=== PATIENT | male | born 1940 | race Caucasian/White ===

== ENCOUNTER 2020-05-26 10:32 | Day surgery (SDC) | payer OTHER, BC ==
[2020-05-21 12:59] LABS: Absolute Lymphocytes (CBC) 1.2 K/uL (0.7-4.9); Hematocrit 40.6 % (39.6-49.0); Lymphocytes % 12.2 % (15.3-44.8); RBC Red Blood Cell Count 4.73 M/uL (4.33-5.43)
[2020-05-21 13:00] LABS: Protime INR 1.03
[2020-05-21 13:31] LABS: Potassium 4.6 mmol/L (3.5-5.1)
--- NOTE | 2020-05-21 14:23 | RAD REPORT ---
EXAM DESCRIPTION: RAD - Chest Pa And Lat (2 Views) - 05/21/2020 1:43 pm CLINICAL HISTORY: PREOP SAME DAY SURGERY Chest pain. COMPARISON: No comparisons FINDINGS: The lungs are mildly emphysematous. The heart is normal in size. Left chest wall chronic p osttraumatic changes are seen.
[~2020-05-26 10:32] MED LIST: GEMCITABINE HCL 1,000 MG in NA CHLORIDE 0.9% 26.3 ML IVPB ONE
[2020-05-26] MEDS ORDERED: NA CHLORIDE 0.9% 1,000 ML ONE (11:18)
[2020-05-26] MEDS ORDERED: ONDANSETRON 4 MG/2 ML VIAL ONE (14:31)
[2020-05-26] MEDS ORDERED: propofoL 200 MG/20 ML VIAL IV ONE (14:31)
[2020-05-26] MEDS ORDERED: FENTANYL CITR 100 MCG/2 ML ONE (14:31)
[2020-05-26] MEDS ORDERED: LIDOCAINE 1% MPF 5 ML VIAL ONE (14:31)
[2020-05-26] MEDS: GENTAMICIN 80 MG/100 ML BAG 80 MG/100 ML BAG IV ONE ×2 (14:48→14:56)
[2020-05-26] MEDS ORDERED: EPHEDRINE SULF 50 MG/ML VIAL ONE (15:25)
[2020-05-26] MEDS ORDERED: GLYCOPYRROLATE 0.2 MG/ML SYR ONE (15:44)
[2020-05-26] MEDS ORDERED: OPIUM/BELLADONNA SUPPOS (30-16.2 MG) PR ONE (16:14)
[2020-05-26] MEDS ORDERED: D50W 50 ML IV ONE (16:21)
[2020-05-26] MEDS ORDERED: HYDROCODONE/APAP 5/325 MG TAB PO PRN (17:20)
[2020-05-26] MEDS ORDERED: PHENAZOPYRIDINE 100MG TAB PO ONE (17:20)
[2020-05-26 17:37] VITALS: BP 125/48; TEMP 96.8; O2SAT 95
--- NOTE | 2020-05-26 18:08 | OP ---
Surgeon: KENNEDI VIGIL Preoperative Diagnosis: Bladder tumor, associated diagnosis urinary retention. Postoperative Diagnosis: Bladder tumor, associated diagnosis urinary retention. Tumor size greater than 2, but less than 5 cm. Principle Procedures: 1.Cystoscopy and right temporary ureteral stent placement and extraction. 2.Transurethral resection of a bladder tumor greater than 2, but less than 5 cm. 3.Instillation of intravesical gemcitabine chemotherapy. Indication For Procedure: Mr. Aleman presented to the Urology Clinic with urinary retention and a Beavers catheter placed. He had failed an attempt at a voiding trial despite alpha-vivi therapy and underwent a cystoscopy to evaluate prior to consideration for possible surgical therapy. At the carolina e of the cystoscopy, incidentally observed was a right lateral wall bladder tumor. He thus presents today for definitive management of that tumor and was consented accordingly. Procedure In Detail: The patient was consented in the preoperative holding area before being transfe rred to the operative suite where general anesthesia was induced. He was given gentamicin 80 mg IV a ntimicrobial prophylaxis to accompany the Levaquin 500 mg oral antimicrobial prophylaxis, which he bain d started yesterday and taken today prior to arrival. Pneumo boots were provided for DVT prophylaxis . He was placed in the lithotomy position, padded and secured to the table appropriately. His genit karin were prepped using Hibiclens, and he was draped in standard fashion. The case was begun using a 22-Grenadian rigid cystoscope to traverse the urethra and into the bladder. The bladder was surveyed, and given the proximity of the tumor to the ureteral orifice opening, I elected to place a 5-Grenadian u reteral access catheter to delineate the ureteral orifice and avoid its inadvertent resection and adan nosis. Leaving the 5-Grenadian ureteral access catheter in place within the right collecting system, em anating from the ureteral orifice and out the urethra, I then replaced the resectoscope alongside it using the 26-Grenadian Olympus bipolar resectoscope set. The bladder was then entered, and using the bi polar loop, I quickly resected the tumor that was just over 2 cm in diameter down to the base. Caref ul resection of the base was then undertaken in order to achieve a sampling of the muscularis propria . The entirety of the specimen was then evacuated from the bladder and sent for pathologic analysis. A careful search for bleeding was undertaken, and any bleeding vessels were carefully fulgurated. The ureteral orifice itself was very near to the affected area of mucosa, but was only fulgurated jose elias ng the anterior 1/2 of its surface. Thus, with the tumor completely resected and no bleeding, I surv eyed the rest of the bladder, and there were no other concerning mucosal lesions, foreign bodies or s tones. There was evidence of mild cystitis from his chronic catheterization. I thus removed the cys toscope and replaced a 20-Grenadian urethral Beavers catheter into his bladder with 10 cc of sterile water in the balloon. I then decompressed his bladder completely and then instilled 2 g of gemcitabine in 50 cc of normal saline with ease. The gemcitabine was clamped within the bladder with a leg bag att ached for ease of evacuation. The patient was taken out of the lithotomy position, transferred to a stretcher, and absorbent chucks were placed around his genitalia in the event of leakage of the intra vesical chemotherapy, and he was transferred to the recovery room in good condition. Complications: None. Discharge Disposition: He would keep the intravesical chemotherapy for 1-2 hours and rotate by a luana rter turn once he is awake sufficiently in order to cope the entirety of his bladder and prevent reim plantation of the tumor. The gemcitabine will then be drained from his bladder and the leg bag assoc iated will be discarded. He will then be given a new leg bag and discharged home with the catheter t o gravity. Subsequent followup will be determined in the Urology Clinic in approximately 2 weeks' ti me where we will discuss the pathology and any next steps in management of both his bladder cancer as well as his urinary retention. He will continue the Levaquin therapy started preoperatively for the remainder of a 7-day course of treatment. ALEXANDRIA/CLEMENTINAL Voice ID: [id number] Report ID: [id number]
--- OUTSIDE RECORDS SUMMARY | 2020-05-27 06:26 | XMS REPORT ---
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 550546995493088 prostate Problem Urinary R33.9 Active 015929134 retention ALLERGIES No Known Allergies ENCOUNTERS from 1940 to 2020-05-05 Encounter Location Date Provider Diagnosis [facility] [address] [facility] [address] Apr, Natanael Granger Specialty[facility] [address] IMMUNIZATIONS No Information SOCIAL HISTORY Sex Assigned At : Social History Observation Description Sex Assigned At Unknown REASON FOR REFERRAL No Information VITAL SIGNS No information MEDICATIONS Medication SIG (Take, Route, Notes Start Date End Date Status Frequency, Duration) Aspirin 81 81 MG 1 tablet Orally Once Active a day Niacin 500 MG 1 tablet with food Act jn Orally Once a day Farxiga 10mg 1 By Mouth Daily Active Flomax 0.4 MG 1 capsule Orally Once Apr,Nov, Active a day for 30 day(s) Pioglitazone HCl 15 MG 1 tablet Orally Once Active a day Amlodipine Besylate 10 MG 1 tablet Orally Once Active a day Hydrochlorothiazide 25 MG 1 tablet in the Active morning Orally Once a day Atenolol 100 MG 1 tablet Orally Once Active a day Benazepril HCl 40 MG 1 tablet Orally Once Active a day PROCEDURES No Information RESULTS No Results REASON FOR VISIT No Information MEDICAL (GENERAL) HISTORY Type Description Date Medical History COPD Medical History DIABETES Goals Section No Information Health Concerns No Information MEDICAL EQUIPMENT No Information MENTAL STATUS No Information FUNCTIONAL STATUS No Information ASSESSMENTS No Information PLAN OF TREATMENT Medication Medication Name Sig Start Date Stop Date Flomax 0.4 MG 1 capsule Orally Once a day for 30 day(s) Apr 9 Nov, 2020 Next Appt Details Provider Name:Natanael Granger, 10:30:00 AM, [address] [place] [address], [place], [address], Insurance Providers Payer Name Payer Address Payer Insured Patient Coverage Cover age Phone Name Relationship to Start Date End Date Insured MEDICARE Attn Part B [id number] Adilson HUERTA self [place] Claims [address] [facility] [address] [facility] [address] [phone] Adilson HUERTA self and Blue [facility] [address] [facility] [address]
--- OUTSIDE RECORDS SUMMARY | 2020-05-27 06:26 | XMS REPORT ---
:1940 Author Organization [facility] Address [address] [facility], 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 200 May, Natanael Granger Specialty/Urology [place] [address] IMMUNIZATIONS No Information SOCIAL HISTORY Sex Assigned At : Social History Observation Description Sex Assigned At Unknown REASON FOR REFERRAL No Information VITAL SIGNS No information MEDICATIONS Medication SIG (Take, Route, Notes Start Date End Date Status Frequency, Duration) Pioglitazone HCl 15 MG 1 tablet Orally Once Active a day Atenolol 100 MG 1 tablet Orally Once Active a day Aspirin 81 81 MG 1 tablet Orally Once Active a day Hydrochlorothiazide 25 MG 1 tablet in the Active morning Orally Once a day Amlodipine Besylate 10 MG 1 tablet Orally Once Active a day Flomax 0.4 MG 1 capsule Orally Once Apr,Nov, Active a day for 30 day(s) Benazepril HCl 40 MG 1 tablet Orally Once Active a day Niacin 500 MG 1 tablet with food Act jn Orally Once a day Farxiga 10mg 1 By Mouth Daily Active PROCEDURES No Information RESULTS No Results REASON FOR VISIT No Information MEDICAL (GENERAL) HISTORY Type Description Date Medical History COPD Medical History DIABETES Goals Section No Information Health Concerns No Information MEDICAL EQUIPMENT No Information MENTAL STATUS No Information FUNCTIONAL STATUS No Information ASSESSMENTS No Information PLAN OF TREATMENT Next Appt Details Provider Name:Natanael Granger, 12:00:00 AM, [address] [place] [address], [facility] [address], [place], [address], Insurance Providers Payer Name Payer Address Payer Insured Patient Coverage Cover age Phone Name Relationship to Start Date End Date Insured MEDICARE Attn Part B [id number] Adilson HUERTA [place] Claims [address] [facility] [address] [facility] [address] [phone] Adil[address] HU[address]A [address] [facility] [address] [facility] [address]
--- OUTSIDE RECORDS SUMMARY | 2020-05-27 06:26 | XMS REPORT ---
:1940 Author Organization [facility] Address [address] [facility], 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 confirmed 971304961275 1 prostate 09 Problem Bladder D49.4 Active confirmed 360765231 tumor Problem Urinary R33.9 Active confirmed 293166418 retention ALLERGIES No Known Allergies ENCOUNTERS from 1940 to 2020-05-22 Encounter Location Date Provider Diagnosis [facility] [address] [facility] 200 May, Natanael Granger Specialty[facility] [address] IMMUNIZATIONS No Information SOCIAL HISTORY Sex Assigned [...] Information RESULTS No Results REASON FOR VISIT RX MEDICAL (GENERAL) HISTORY Type Description Date Medical History COPD Medical History DIABETES Goals Section No Information Health Concerns No Information MEDICAL EQUIPMENT No Information MENTAL STATUS No Information FUNCTIONAL STATUS No Information ASSESSMENTS No Information PLAN OF TREATMENT Next Appt Details Provider Name:Natanael Granger, 12:00:00 AM, [address] [place] [address], [facility] [address], [place], [address], Insurance Providers Payer Name Payer Address Payer Insured Patient Coverage Cover age Phone Name Relationship to Start Date End Date Insured MEDICARE Attn Part B [id number] Adilson HUERTA N[place] Claims [address] [facility] [address] [facility] [address] [phone] Adilson HUERTA and [facility] [address] [facility] [address]
--- OUTSIDE RECORDS SUMMARY | 2020-05-27 06:26 | XMS REPORT | Continuity of Care Document ---
:1940 Author Organization [facility] t Address [facility] [place] [address] Care Team Providers Name Role Phone Unavailable Unavailable Unavailable Problems This patient has no known problems. Allergies, Adverse Reactions, Alerts This patient has no known allergies or adverse reactions. Medications This patient has no known medications. Procedures This patient has no known procedures. Encounters Start End Encounter Admission Attending Care Care Encounter Source Date/Time Date/Time Type Type Clinicians Facility Department ID 2020-05-21 2020-05-[address] [facility] [id number] [facility] 2020-05-21 2020-05-[address] [facility] [id number] [facility] 2020-05-21 2020-05-[address] [facility] [id number] [facility] 2020-05-18 2020-05-[address] [facility] [id number] [facility] 2020-05-05 2020-05-[address] [facility] [id number] [facility] 2020-05-05 2020-05-[address] [facility] [id number] [facility] 2020-04-27 2020-04-[address] [facility] [id number] [facility] 00:00:00 00:00:00 [facility] ent Clinics Results This patient has no known results.
--- OUTSIDE RECORDS SUMMARY | 2020-05-27 06:26 | XMS REPORT ---
:[address] [facility] Address [address] [facility], [facility]. 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 11 Apr, 2020 Natanael Granger Urinary retention Specialty/Urology 200 [place], R33.9 and Nodular [facility] [address] prostate N40.2 IMMUNIZATIONS No Information SOCIAL HISTORY Sex Assigned At : Social History Observation Description Sex Assigned At Unknown REASON FOR REFERRAL No Information VITAL SIGNS Height 71 in Apr, Weight 166 lbs Apr, Temperature 98.2 degrees Fahrenheit Apr, BMI 23.15 kg/m2 Apr, Oximetry 99 % Apr, Blood pressure systolic 177 mm Hg Apr, Blood pressure diastolic 77 mm Hg Apr, MEDICATIONS Medication SIG (Take, Route, Notes Start Date End Date Status Frequency, Duration) Aspirin 81 81 MG 1 tablet Orally Once Active a day Niacin 500 MG 1 tablet with food Act jn Orally Once a day Farxiga 10mg 1 By Mouth Daily Active Flomax 0.4 MG 1 capsule Orally Once Apr,Nov, 21 Active a day for 30 day(s) Pioglitazone [...] Information RESULTS No Results REASON FOR VISIT retention, snow remover - has a cath, PT JUST MOVED HERE- WENT TO URGENT CARE MEDICAL (GENERAL) HISTORY Type Description Date Medical History COPD Medical History DIABETES Goals Section No Information Health Concerns No Information MEDICAL EQUIPMENT No Information MENTAL STATUS No Information FUNCTIONAL STATUS No Information ASSESSMENTS Encounter Date Diagnosis Assessment Notes Treatment Notes Treatm ent Clinical Notes Apr, Urinary retention (ICD-10 - R33.9) Apr, Nodular prostate (ICD-10 - N40.2) PLAN OF TREATMENT Medication Medication Name Sig Start Date Stop Date Flomax 0.4 MG 1 capsule Orally Once a day for 30 day(s) AprNov, Treatment Notes Test Name Order Date Urine Culture 2020-04-27 Next Appt Details Provider Name:Natanael Granger, 10:30:00 AM, [address] [place] [address], [place], [address], Insurance Providers Payer Name Payer Address Payer Insured Patient Coverage Cover age Phone Name Relationship to Start Date End Date Insured MEDICARE Attn Part B [id number] Adilson HUERTA [place] Claims [address] [facility] [address] [facility] [address] [phone] Adilson HUERTA and [place] [address] [address] [facility] [address]
--- OUTSIDE RECORDS SUMMARY | 2020-05-27 06:26 | XMS REPORT ---
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 228112134581285 prostate Problem Urinary R33.9 Active 890682994 retention ALLERGIES No Known Allergies ENCOUNTERS from 1940 to 2020-05-05 Encounter Location Date Provider Diagnosis [place] [address] [facility] [address] Apr, Natanael Granger Specialty[facility] [address] IMMUNIZATIONS No Information SOCIAL HISTORY Sex Assigned [...] Information RESULTS No Results REASON FOR VISIT Concerns about father MEDICAL (GENERAL) HISTORY Type Description Date Medical [...] Appt Details Provider Name:Natanael Granger, 10:30:00 AM, [address] [place] [address], [place], [address], Insurance Providers Payer Name Payer Address Payer Insured Patient Coverage Cover age Phone Name Relationship to Start Date End Date Insured MEDICARE Attn Part B [id number] Adilson HUERTA self [place] Claims [address] [facility] [address] [facility] [address] [phone] Adilson HUERTA self and [facility] [address] [facility] [address]
--- OUTSIDE RECORDS SUMMARY | 2020-05-27 06:26 | XMS REPORT ---
:1940 Author Organization [facility] Address [address] [facility], 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 confirmed 261714570706 1 prostate 09 Problem Bladder D49.4 Active confirmed 987345461 tumor Problem Urinary R33.9 Active confirmed 889967263 retention ALLERGIES No Known Allergies ENCOUNTERS from 1940 to 2020-05-18 Encounter Location Date Provider Diagnosis [facility] [address] [facility] May, Natanael Granger Urinary retention Specialty/Urology [address] [place] [address], 3.9 ; [place] [address] prostate N40.2 and Bladder tumor D 49.4 IMMUNIZATIONS No Information SOCIAL HISTORY Sex Assigned At : Social History Observation Description Sex Assigned At Unknown REASON FOR REFERRAL No Information VITAL SIGNS Height 71 in May, Weight 166 lbs May, Temperature 97.7 degrees Fahrenheit May, BMI 23.15 kg/m2 May, Oximetry 100 % May, Blood pressure systolic 154 mm Hg May, Blood pressure diastolic 67 mm Hg May, MEDICATIONS Medication SIG (Take, Route, Notes Start [...] Information RESULTS No Results REASON FOR VISIT CYSTO/VOIDING TRAIL MEDICAL (GENERAL) HISTORY Type Description Date Medical History COPD Medical History DIABETES Goals Section No Information Health Concerns No Information MEDICAL EQUIPMENT No Information MENTAL STATUS No Information FUNCTIONAL STATUS No Information ASSESSMENTS Encounter Date Diagnosis Assessment Notes Treatment Notes Treatm ent Clinical Notes May, Urinary retention (ICD-10 - R33.9) May, Nodular prostate (ICD-10 - N40.2) May, Bladder tumor (ICD-10 - D49.4) PLAN OF TREATMENT No Information Insurance Providers Payer Name Payer Address Payer Insured Patient Coverage Cover age Phone Name Relationship to Start Date End Date Insured [facility] [address] [phone] Adilson HUERTA and [facility] [place] [address] [facility] [address] MEDICARE Attn Part B [id number] Adilson HUERTA NOV[place] Claims [address] [facility] [address]
--- OUTSIDE RECORDS SUMMARY | 2020-05-27 06:26 | XMS REPORT ---
:1940 Author Organization [facility] Address [address] [facility], 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 [address], [place], [address], Insurance Providers Payer Name Payer Address Payer Insured Patient Coverage Cover age Phone Name Relationship to Start Date End Date Insured MEDICARE Attn Part B [id number] Adilson HUERTA [place] Claims [address] [facility] [address] [facility] [address] [phone] Adilson HUERTA and [facility] [address] [facility] [address]
== END 2020-05-26 17:55 | disposition home or self-care (01) ==
LOC: OR 10:32
PROVIDERS: ATTEND Urology
PROC: 3E0K705 Introduction of Other Antineoplastic into Genitourinary Tract, Via Natural or Artificial Opening (ICD-10-PCS; 2020-05-26)
PROC: 0TBB8ZX Excision of Bladder, Via Natural or Artificial Opening Endoscopic, Diagnostic (ICD-10-PCS; principal; 2020-05-26 12:15)
DX: D09.19 Carcinoma in situ of other urinary organs (principal); N40.2 Nodular prostate without lower urinary tract symptoms; R33.9 Retention of urine, unspecified; E11.9 Type 2 diabetes mellitus without complications; J44.9 Chronic obstructive pulmonary disease, unspecified; Z20.822 Contact with and (suspected) exposure to COVID-19
CPT/HCPCS: 52235; 93005; 87088; 85025; 87086; 80048; 36415; 85610; 82947 ×2; 88307; 85730; 87077; 87186; 71046; 51720; U0002; J2704; J3010; J9201; J7030; J1580; J2405; 88305

== ENCOUNTER 2020-06-01 11:05 | Emergency (ER) | payer OTHER, BC ==
--- NOTE | 2020-06-01 13:07 | ER ---
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 Granger". Pt states "I had a catheter put in since and they replaced it the day of my surgery but I haven't been able to pee since yesterday". Pt c/o pain to penis. 11:29 Method Of Arrival: Wheelchair aa5 11:29 Acuity: VICTOR HUGO 3 aa5 11:29 Coronavirus screen: Client denies travel out of the [place] in the last 14 days. At this aa5 time, the client does not indicate any symptoms associated with coronavirus-19. Ebola Screen: Patient negative for fever greater than or equal to 101.5 degrees Fahrenheit, and additional compatible Ebola Virus Disease symptoms. Initial Sepsis Screen: Does the patient meet any 2 criteria? No. Patient's initial sepsis screen is negative. Does the patient have a suspected source of infection? No. Patient's initial sepsis screen is negative. Risk Assessment: Do you want to hurt yourself or someone else? Patient reports no desire to harm self or others. Onset of symptoms was May 2020. Historical: - Allergies: 11:30 No Known Allergies; aa5 - PMHx: 11:30 Diabetes - IDDM; aa5 - Immunization history:: Adult Immunizations unknown. - Social history:: Smoking status: Patient denies any tobacco usage or history of. Screenin:30 Abuse screen: Denies threats or abuse. Denies injuries from another. Nutritional zb screening: No deficits noted. Tuberculosis screening: No symptoms or risk factors identified. Fall Risk None identified. Assessment: 12:30 General: Appears in no apparent distress. uncomfortable, Behavior is cooperative, zb agitated. Pain: Complains of pain in groin and suprapubic area Quality of pain is described as pressure. Neuro: Level of Consciousness is awake, alert, obeys commands, Oriented to person, place, time, situation. Cardiovascular: Capillary refill < 3 seconds Patient's skin is warm and dry. Respiratory: Airway is patent Respiratory effort is even, unlabored, Respiratory pattern is regular, symmetrical. GI: Abdomen is round bladder distention Bowel sounds present X 4 quads. : Mallory in place Bladder is distended Reports inability to void, since this morning. EENT: No signs and/or symptoms were reported regarding the EENT system. Derm: Skin is intact, Skin is dry, Skin is normal, Skin temperature is warm. Musculoskeletal: Range of motion: intact in all extremities. 12:52 Reassessment: Patient appears in no apparent distress at this time. Patient and/or zb family updated on plan of care and expected duration. Pain level reassessed. Patient is alert, oriented x 3, equal unlabored respirations, skin warm/dry/pink. mallory irrigated removed 450ml of urine. currently flowing well. notified provider. Patient states feeling better. Patient states symptoms have improved. 13:30 Reassessment: pt ready to go. wheeled out by tech. zb Vital Signs: 11:30 BP 126 / 48; Pulse 80; Resp 16 S; Temp 97.4(O); Pulse Ox 95% on R/A; Weight 81.65 kg aa5 (R); Height 6 ft. 0 in. (182.88 cm) (R); Pain 7/10; 12:54 BP 140 / 58; Pulse 75; Resp 16; Pulse Ox 96% on R/A; zb 11:30 Body Mass Index 24.41 (81.65 kg, 182.88 cm) aa5 ED Course: 11:12 Patient arrived in ED. mr 11:13 Terell Patten MD is Private Physician. mr 11:29 Arm band placed on Patient placed in an exam room, on a stretcher. aa5 11:36 Parker Edwards MD is Attending Physician. tw4 11:51 Triage completed. aa5 12:19 Matilde Kumar, KIKO is Primary Nurse. zb 12:51 Patient has correct armband on for positive identification. Pulse ox on. NIBP on. Door zb closed. Noise minimized. 12:52 Bladder irrigated via Mallory with 50 ml normal saline returned yellow urine Patient zb tolerated well. 13:05 Terell Patten MD is Referral Physician. tw4 13:33 No provider procedures requiring assistance completed. Patient did not have IV access zb during this emergency room visit. Administered Medications: No medications were administered Outcome: 13:06 Discharge ordered by . tw4 13:33 Discharged to home via wheelchair. zb 13:33 Condition: stable 13:33 Discharge instructions given to patient, Instructed on discharge instructions, follow up and referral plans. Mallory catheter 13:35 Patient left the ED. zb Signatures: Sara Jarquin mr LewisXochilt, RN RN aa5 Parker Edwards MD MD tw4 Matilde Kumar RN RN zb Corrections: (The following items were deleted from the chart) 11:51 11:29 Chief complaint: Patient states: "I had a tumor removed from my cancer [place] [id number] 53 11:49 Onset of symptoms was May 2020 [place] [address] 11:49 Acuity: VICTOR HUGO 3 aa aa 11:49 Method Of Arrival: Wheelchair [place] [address] 11:49 Risk Assessment: Do you want to hurt yourself or someone else? Patient reports no [facility] desire to harm self or others. [facility] 11:49 Initial Sepsis Screen: Does the patient meet any 2 criteria? No. Patient's [facility] initial sepsis screen is negative. Does the patient have a suspected source of infection? No. Patient's initial sepsis screen is negative. 5 11:49 Ebola Screen: Patient negative for fever greater than or equal to 101.5 degrees aa Fahrenheit, and additional compatible Ebola Virus Disease symptoms [facility] 11:49 Coronavirus screen: Client denies travel out of the [place] in the last 14 days. At aa5 this time, the client does not indicate any symptoms associated with coronavirus-19. aa5
--- NOTE | 2020-06-01 13:07 | EDPHYS ---
Physician Documentation [facility] Name: Kevin Aleman Age: 79 yrs Sex: Male : 1940 Arrival Date: 06/01/2020 Time: 11:12 Bed 15 Private MD: Terell Patten T ED Physician Parker Edwards HPI: 06/01 12:34 This 79 yrs old Male presents to ER via Wheelchair with complaints of Urinary tw4 Problem. 12:34 The patient presents with urinary symptoms, retention. Onset: The symptoms/episode tw4 began/occurred today. Modifying factors: The symptoms are alleviated by nothing, the symptoms are aggravated by. The patient has not experienced similar symptoms in the past. Historical: - Allergies: 11:30 No Known Allergies; aa5 - PMHx: 11:30 Diabetes - IDDM; aa5 - Immunization history:: Adult Immunizations unknown. - Social history:: Smoking status: Patient denies any tobacco usage or history of. ROS: 12:34 Constitutional: Negative for fever, chills, and weight loss, Eyes: Negative for injury, tw4 pain, redness, and discharge, Cardiovascular: Negative for chest pain, palpitations, and edema, Respiratory: Negative for shortness of breath, cough, wheezing, and pleuritic chest pain, Abdomen/GI: Negative for abdominal pain, nausea, vomiting, diarrhea, and constipation, Back: Negative for injury and pain. 12:34 Skin: Negative for injury, rash, and discoloration, Neuro: Negative for headache, weakness, numbness, tingling, and seizure, Psych: Negative for depression, anxiety, suicide ideation, homicidal ideation, and hallucinations. 12:34 : Positive for burning with urination, difficulty urinating. Exam: 12:34 Constitutional: This is a well developed, well nourished patient who is awake, alert, tw4 and in no acute distress. Head/Face: Normocephalic, atraumatic. Cardiovascular: Regular rate and rhythm with a normal S1 and S2. No gallops, murmurs, or rubs. Normal PMI, no JVD. No pulse deficits. Respiratory: Lungs have equal breath sounds bilaterally, clear to auscultation and percussion. No rales, rhonchi or wheezes noted. No increased work of breathing, no retractions or nasal flaring. Abdomen/GI: Soft, non-tender, with normal bowel sounds. No distension or tympany. No guarding or rebound. No evidence of tenderness throughout. Back: No spinal tenderness. No costovertebral tenderness. Full range of motion. MS/ Extremity: Pulses equal, no cyanosis. Neurovascular intact. Full, normal range of motion. Neuro: Awake and alert, GCS 15, oriented to person, place, time, and situation. Cranial nerves II-XII grossly intact. Motor strength 5/5 in all extremities. Sensory grossly intact. Cerebellar exam normal. Normal gait. Vital Signs: 11:30 BP 126 / 48; Pulse 80; Resp 16 S; Temp 97.4(O); Pulse Ox 95% on R/A; Weight 81.65 kg aa5 (R); Height 6 ft. 0 in. (182.88 cm) (R); Pain 7/10; 12:54 BP 140 / 58; Pulse 75; Resp 16; Pulse Ox 96% on R/A; zb 11:30 Body Mass Index 24.41 (81.65 kg, 182.88 cm) aa5 MDM: 11:37 Patient medically screened. tw4 12:34 Differential diagnosis: nonspecific abdominal pain, appendicitis, urinary retention. tw4 Data reviewed: vital signs, nurses notes. Data interpreted: Pulse oximetry: Interpretation: normal. Counseling: I had a detailed discussion with the patient and/or guardian regarding: the historical points, exam findings, and any diagnostic results supporting the discharge/admit diagnosis. Special discussion: I discussed with the patient/guardian in detail that at this point there is no indication for admission to the hospital. It is understood, however, that if the symptoms persist or worsen the patient needs to return immediately for re-evaluation. Administered Medications: No medications were administered Disposition: 06/01/20 13:06 Discharged to Home. Impression: Retention of urine, unspecified. - Condition is Stable. - Discharge Instructions: Acute Urinary Retention, Male, [place] Catheter Care, Adult, Omaw-ef-Nbsl. - Medication Reconciliation Form, Thank You Letter, Antibiotic Education, Prescription Opioid Use form. - Follow up: Terell Patten MD; When: Upon discharge from the Emergency Department; Reason: Recheck today's complaints, Continuance of care, Re-evaluation by your physician. - Problem is new. - Symptoms have improved. Signatures: Xochilt Lewis, RN RN aa5 Parker Edwards MD MD tw4 Matilde Kumar RN RN zb Corrections: (The following items were deleted from the chart) 13:35 13:06 06/01/2020 13:06 Discharged to Home. Impression: Retention of urine, unspecified. zb Condition is Stable. Forms are Medication Reconciliation Form, Thank You Letter, Antibiotic Education, Prescription Opioid Use. Follow up: Terell Patten; When: Upon discharge from the Emergency Department; Reason: Recheck today's complaints, Continuance of care, Re-evaluation by your physician. Problem is new. Symptoms have improved. tw4
[2020-06-01 13:39] VITALS: TEMP 97.4
[2020-06-01 13:40] VITALS: BP 140/58; O2SAT 96
== END 2020-06-01 13:35 | disposition home or self-care (01) ==
LOC: ER 11:05
DX: R33.9 Retention of urine, unspecified (principal); R30.0 Dysuria; E11.9 Type 2 diabetes mellitus without complications
CPT/HCPCS: 51700; 99284

== ENCOUNTER 2020-08-13 15:44 | Day surgery (SDC) | payer OTHER, BC ==
[2020-08-10 13:48] LABS: Absolute Lymphocytes (CBC) 1.9 K/uL (0.7-4.9); Basophils % 0.6 % (0-1.3); Lymphocytes % 17.9 % (15.3-44.8); MPV 7.8 fL (7.6-11.3); RBC Red Blood Cell Count 4.63 M/uL (4.33-5.43)
[2020-08-10 14:02] LABS: Potassium 3.9 mmol/L (3.5-5.1)
[2020-08-13] MEDS ORDERED: NA CHLORIDE 0.9% 500 ML ONE (16:23)
[2020-08-13] MEDS ORDERED: HEPA 1000U/500MLS 1,000 UNIT/500 ML BAG IV ONE (17:29)
[2020-08-13] MEDS ORDERED: HEPARIN 5000 UNIT/ML 1 ML VIAL ONE (17:30)
[2020-08-13] MEDS ORDERED: FENTANYL CITR 100 MCG/2 ML ONE (17:30)
[2020-08-13] MEDS ORDERED: MIDAZOLAM HCL 2 MG/2 ML INJ ONE (17:30)
[2020-08-13] MEDS ORDERED: VERAPAMIL HCL 10 MG/4 ML VIAL IV ONE (17:31)
[2020-08-13 18:51] VITALS: TEMP 97
[2020-08-13 20:02] VITALS: BP 146/51; O2SAT 97
--- NOTE | 2020-08-14 01:29 | OP ---
Date of Procedure: 08/13/2020 Surgeon: ALMA DELIA FAULKNER Procedures Performed: 1.Selective coronary angiogram. 2.Distal aortogram with selective bilateral lower extremity peripheral angiogram. Indication: 1.Chest pain with angina. 2.Severe peripheral vascular disease. Access: Right radial artery 6-Mongolian closed with TR band. Complications: None. Bleeding: Less than 10 mL. Description Of Procedure: After risks, benefits, and alternatives were explained, the patient agreed to proceed and signed informed consent. The patient was brought into the cardiac catheterization la boratory, prepped and draped in usual sterile fashion. Then, we accessed right radial artery using p Gini[employer]net micropuncture kit and placed a 6-Mongolian slender sheath, subsequently took a 5-Mongolian [place] 4 .0 catheter into the aortic root over a J-wire, engaged left main and right coronary artery, took sta ndard views. Then, we exchanged for a long 4-Mongolian multipurpose catheter and took this catheter ove r the wire into the distal aorta, did a distal aortogram and then bilateral selective lower extremity peripheral angiogram. I then removed the catheter, the wire, and the sheath, and placed TR band wit h good hemostasis. Findings: 1.Left main is normal. 2.LAD, very mild luminal irregularities with no significant disease. 3.Left circumflex, mild luminal irregularities with no significant disease. 4.RCA has mid 40% to 50% stenosis, otherwise no significant disease. Peripheral Angiogram: 1.Distal aorta is patent. 2.Bilateral iliac arteries are patent with mild disease. 3.Left femoral artery has 80% long segment with right femoral artery is normal. 4.Left SFA with diffuse heavily calcified 80% to 90% stenosis throughout and HEAD IRRIGATOR above the knee estrellita nstitutes about maybe 6 or 7 cm below that with very sluggish flow below the knee. 5.Right SFA with 50% diffuse disease, heavily calcified and focal 80% to distal part of it and then HEAD IRRIGATOR. 6.Very slow flow below the knee bilaterally with significant popliteal disease on the left and on th e right. Conclusions: 1.Severe bilateral peripheral arterial disease. 2.Moderate osseous disease. Plan: 1.Bilateral lower extremity intervention at [place] for arthrectomy and possible shock wave use and stents of the femoral artery as well, that will be done at multiple stages due to chronic kidney dise ase. 2.Aggressive medical management for coronary artery disease. SR/MODL Voice ID: [id number] Report ID: [id number]
== END 2020-08-13 20:00 | disposition home or self-care (01) ==
LOC: CCL 15:44
PROVIDERS: ATTEND Internal Medicine
DX: I25.10 Atherosclerotic heart disease of native coronary artery without angina pectoris (principal); I70.203 Unspecified atherosclerosis of native arteries of extremities, bilateral legs; I10 Essential (primary) hypertension; E11.9 Type 2 diabetes mellitus without complications; Z87.891 Personal history of nicotine dependence; Z20.822 Contact with and (suspected) exposure to COVID-19
CPT/HCPCS: 85025; 80048; 36415; 85610; 85730; 36245 ×2; 93454; U0002; C1893; J1644 ×2; J2250; J3010; J7040

== ENCOUNTER 2020-09-21 15:56 | Emergency (ER) | payer OTHER, BC ==
--- OUTSIDE RECORDS SUMMARY | 2020-09-21 15:59 | XMS REPORT | Continuity of Care Document ---
:1940 Author Organization [facility] t Address [address] [place] [address] Care Team Providers Name Role Phone Last NUNO Attending Clinician Doctor Unassigned, Name Attending Clinician Unavailable Payers Payer Name Policy Type Policy Number Effective Date Expiration Date S ource Problems This patient has no known problems. Allergies, Adverse Reactions, Alerts Allergy Allergy Status Severity Reaction(s) Onset Inactive Treating Comm ents Source Name Type Date Date Clinician No Known DA Active [facility] Allergie 5-10 Clear s 00:00: Richards 00 [facility] Medications This patient has no known medications. Procedures This patient has no known procedures. Encounters Start End Encounter Admission Attending Care Care Encounter Source Date/Time Date/Time Type Type Clinicians Facility Department ID 2020-08-19 2020-08-19 Outpatient [facility] [id number] [facility] 2020-08-14 2020-08-14 Outpatient [facility] [id number] [facility] 2020-08-14 2020-08-14 Outpatient [facility] [id number] [facility] 2020-08-14 2020-08-14 Outpatient [facility] [id number] [facility] 2020-07-27 2020-07-27 Office Last SIMONAMICHEAL [id number] 09:17:25 10:29:09 Visit Aury Sprague [id number] T[place] [id number] [facility] [id number] [address] 2020-07-10 2020-07-10 Orders Doctor OJSE [id number] 00:00:00 00:00:00 Only Unassigned, DARRELL [id number] [place] [facility] [id number] 2020-06-12 2020-06-12 Outpatient [facility] [id number] [facility] 2020-06-08 2020-06-08 Outpatient [facility] [id number] [facility] 2020-05-27 2020-05-27 Outpatient [facility] [id number] [facility] 2020-05-21 2020-05-21 Outpatient [facility] [id number] [facility] 2020-05-21 2020-05-21 Outpatient [facility] [id number] [facility] 2020-05-21 2020-05-21 Outpatient [facility] [id number] [facility] 2020-05-18 2020-05-18 Outpatient [facility] [id number] [facility] 2020-05-05 2020-05-05 Outpatient [facility] [id number] [facility] 2020-05-05 2020-05-05 Outpatient [facility] [id number] [facility] 2020-04-27 2020-04-27 Outpatient [facility] [id number] [facility] Results Test Description Test Time Test Comments Results Result Comments Source ACT-ISTAT 2020-08-26 13:01:00 Test Item Value Reference Range Interpretation Comme nts ACT-ISTAT (test code = ACTI) 202 SEC 74-137 H Performed by certified screw machine operator at [facility] [id number] 10:02:00 Test Item Value Reference Range Interpretation Comments GLUBED (test code = 74 MG/DL 70-110 N Performe d by certified GLUBED) screw machine operator at [facility] - XR CHEST 2 [id number] 12:45:00 [facility] 1940 Sex: M FAX: Bryson Cole MD [phone] [place]: St: PRE Name: BRODERICK HUERTA [facility] : 1940 Age[facility]S: 79/M [address] [facility] [id number] Loc: [place] [address] Phys: Bryson Lane MD Acct: [id number] Dis Date: Status: PRE SDC PHONE #: [phone] Exam Date: 08/24/2020 124 FAX #: [phone] Reason: PERIPHERAL ANGIO EXAMS: CPT CODE: [id number] XR CHEST 2 V 73748 EXAM: PA and lateral chest. EXAM DATE: August 24, 2020 CLINICAL HISTORY: PERIPHERAL ANGIO COMPARISON: None Cardiomediastinal silhouette is within normal limits. Hyperinflation is identified.. No acute findings identified. Calcified nodule in the right lung is most compatible with granuloma. Multiple healed left rib fractures and healed left scapular fracture noted. IMPRESSION: No evidence of acute cardiopulmonary disease. at 1245 Reported and signed by: Solange Granger M.D. CC: Bryson Lane MD Technologist: RT Mary(R) Trnadrian Date/Time/By: 08/24/2020 ([id number]) : By: Landon Orig Print D/T: S: 08/24/2020 ([id number]) PAGE 1 Signed ReportBASIC METABOLIC [id number] 12:22:00 Test Item Value Reference Range Interpretation Comments SODIUM (test code = NA) 138 mEq/L 134-147 N POTASSIUM (test code = 3.9 mEq/L 3.4-5.0 N K) CHLORIDE (test code = 103 mEq/L 100-108 N CL) CARBON DIOXIDE (test 31 mEq/l 21-33 N code = CO2) ANION GAP (test code = 8 0-20 N GAP) GLUCOSE (test code = 89 mg/dL 70-110 N GLU) BLOOD UREA NITROGEN 26 mg/dL 7-18 H (test code = BUN) GLOMERULAR FILTRATION 45.3 70-80 L Units of measure = RATE (test code = GFR) ml/mi n/1.73 m2 CREATININE (test code = 1.5 mg/dL 0.6-1.3 H CREAT) CALCIUM (test code = 9.8 mg/dL 8.0-10.5 N CA) CBC W/AUTO [id number] 12:17:00 Test Item Value Reference Range Interpretation Comments WHITE BLOOD CELL (test code = 10.9 x10 3/uL 4.5-11.0 N WBC) RED BLOOD CELL (test code = 4.98 x10 6/uL 4.00-5.60 N RBC) HEMOGLOBIN (test code = HGB) 13.6 g/dL 12.5-16.9 N HEMATOCRIT (test code = HCT) 44.8 % 37.5-50.7 N MEAN CELL VOLUME (test code = 90.0 fL 81.0-99.0 N MCV) MEAN CELL HGB (test code = MCH) 27.3 pg 27.0-33.0 N MEAN CELL HGB CONCETRATION 30.4 g/dL 33.0-37.0 L (test code = MCHC) RED CELL DISTRIBUTION WIDTH CV 13.5 % 11.5-14.5 N (test code = RDW) RED CELL DISTRIBUTION WIDTH SD 44.7 fL 37.0-54.0 N (test code = RDW-SD) PLATELET COUNT (test code = 351 x10 3/uL 150-400 N PLT) MEAN PLATELET VOLUME (test code 9.1 fL 7.0-9.0 H = MPV) NEUTROPHIL % (test code = NT%) 70.5 % 56.0-77.0 N IMMATURE GRANULOCYTE % (test 1.1 % 0.0-2.0 N code = IG%) LYMPHOCYTE % (test code = LY%) 17.2 % 14.0-32.0 N MONOCYTE % (test code = MO%) 7.8 % 4.8-9.0 N EOSINOPHIL % (test code = EO%) 2.8 % 0.3-3.7 N BASOPHIL % (test code = BA%) 0.6 % 0.0-2.0 N NUCLEATED RBC % (test code = 0.0 % 0-0 N NRBC%) NEUTROPHIL # (test code = NT#) 7.67 x10 3/uL 2.0-7.6 H IMMATURE GRANULOCYTE # (test 0.12 x10 3/uL 0.00-0.03 H code = IG#) LYMPHOCYTE # (test code = LY#) 1.88 x10 3/uL 1.0-3.8 N MONOCYTE # (test code = MO#) 0.85 x10 3/uL 0.1-0.8 H EOSINOPHIL # (test code = EO#) 0.31 x10 3/uL 0.0-0.2 H BASOPHIL # (test code = BA#) 0.07 x10 3/uL 0.0-0.2 N NUCLEATED RBC # (test code = 0.00 x10 3/uL 0.0-0.1 N NRBC#) MANUAL DIFF REQUIRED (test code NO = MDIFF) PROTHROMBIN [id number] 12:13:00 Test Item Value Reference Range Interpretation Comments PROTHROMBIN TIME 11.9 SECONDS 9.3-12.9 N PATIENT (test code = PTP) INTERNATIONAL NORMAL 1.1 0.8-1.2 N TARGET RATIO (test code = INR BY IN DICATION INR) Indication INR1. Prophyl axis of venous thrombos is 2.0 - 3. 0 (orthopedic evonne fortunato), Prophylaxis of venous thrombos is (other than hig h-risk surgery), Renetta tment of Deep Vein Thrombosis/Pulm onary Embolism, Preve ntion of systemic emb olism - Tissue heart va lves, Acute Myocardia l Infarction (to prevent systemic embo lism), Valvular heart disease, Atri al Fibrillation, Bileaflet mecha nical valve in aortic position.2. Mec hanical prosthetic valv es (high risk), 2.5 - 3.5 Presence of Lupus Anticoagu lant or Antiphospholi pid Antibodies, Pre vention of systemic e mbolism - Acute Myocard ial Infarction (t o prevent recurre nt infarct).
[2020-09-21 18:59] LABS: Absolute Lymphocytes (CBC) 1.3 K/uL (0.7-4.9); Basophils % 1.3 % (0-1.3); Hematocrit 38.2 % (39.6-49.0); MPV 7.5 fL (7.6-11.3); RBC Red Blood Cell Count 4.62 M/uL (4.33-5.43)
[2020-09-21 19:01] LABS: Protime INR 1.17
[2020-09-21 19:17] LABS: Albumin 2.5 g/dL (3.4-5.0); Bilirubin Direct 0.2 mg/dL (0-0.2); Bilirubin Total 0.5 mg/dL (0.2-1.0); Potassium 3.9 mmol/L (3.5-5.1); Protein, Total 7.7 g/dL (6.4-8.2)
--- NOTE | 2020-09-21 20:19 | RAD REPORT ---
EXAM DESCRIPTION: US - Lower Extremity Artery Uni Ltd - 09/21/2020 7:51 pm CLINICAL HISTORY: NUMBNESS/TINGLING Leg pain COMPARISON: Lower Extremity Arterial Bilat dated 07/29/2020 FINDINGS: Doppler interrogation of the left lower extremity arterial system was performed. Monophasic waveform noted left common femoral artery. No detectable flow in the left superficial femoral artery. Monophasic waveform seen with blunted amplitude left popliteal artery and posterior tibial artery. No detectable flow left dorsalis pedis artery. IMPRESSION: Chronic occlusion left superficial femoral artery noted. Left dorsalis pedis artery is also likely occluded.
--- NOTE | 2020-09-21 20:39 | ER ---
Nurse's Notes [facility] Name: Kevin Aleman Age: 79 yrs Sex: Male : 1940 Arrival Date: 09/21/2020 Time: 15:58 Bed 25 Private MD: Jeff Gary Diagnosis: Left leg arterial occulsion;Left lower leg vascular ulcerations;Osteomyelitis left first MTP joint Presentation: 09/21 16:23 Chief complaint: "we were at the wound center and Dr. Gary sent us over here to be jd3 seen and transfer to [facility] for the wounds on his legs.". Coronavirus screen: At this time, the client does not indicate any symptoms associated with coronavirus-19. Ebola Screen: Patient negative for fever greater than or equal to 101.5 degrees Fahrenheit, and additional compatible Ebola Virus Disease symptoms. Initial Sepsis Screen: Does the patient meet any 2 criteria? No. Patient's initial sepsis screen is negative. Does the patient have a suspected source of infection? No. Patient's initial sepsis screen is negative. Risk Assessment: Do you want to hurt yourself or someone else? Patient reports no desire to harm self or others. Onset of symptoms was September 21, 2020. 16:23 Method Of Arrival: Wheelchair jd3 16:23 Acuity: VICTOR HUGO 3 jd3 Triage Assessment: 18:26 General: Appears in no apparent distress. Behavior is calm, cooperative. Pain: Denies ak2 pain. Historical: - Allergies: 16:28 No Known Allergies; jd3 - Home Meds: 16:28 Aspirin Oral [Active]; basaglar [Active]; Novolin R Sub-Q [Active]; benazepril oral jd3 oral [Active]; Farxiga oral oral [Active]; Hydrochlorothiazide Oral [Active]; Niacin Oral [Active]; gabapentin oral oral [Active]; - PMHx: 16:28 Diabetes - IDDM; jd3 - PSHx: 16:28 tumor removed from bladder; jd3 - Immunization history:: Adult Immunizations up to date. - Social history:: Smoking status: Patient denies any tobacco usage or history of. Screenin:25 Abuse screen: Denies threats or abuse. Denies injuries from another. Nutritional ak2 screening: No deficits noted. Tuberculosis screening: No symptoms or risk factors identified. Fall Risk No fall in past 12 months (0 pts). No secondary diagnosis (0 pts). IV access (20 points). Ambulatory Aid- Furniture (30 pts.). Gait- Impaired (20 pts.). Mental Status- Oriented to own ability (0 pts). Total Fernandez Fall Scale indicates. Assessment: 23:08 General: report called to rn for transfer to [facility]. ak2 Vital Signs: 16:28 BP 149 / 55; Pulse 57; Resp 17 S; Temp 98.6(TE); Pulse Ox 95% on R/A; Weight 72.57 kg jd3 (R); Height 6 ft. 0 in. (182.88 cm) (R); Pain 0/10; 20:52 BP 167 / 58; Pulse 60; Resp 18; Pulse Ox 98% on R/A; ak2 22:35 BP 157 / 54; Pulse 58; Resp 18; Pulse Ox 98% on R/A; ak2 16:28 Body Mass Index 21.70 (72.57 kg, 182.88 cm) jd3 ED Course: 15:58 Patient arrived in ED. as 15:59 Jeff Gary MD is Private Physician. as 16:25 Triage completed. jd3 16:30 Arm band placed on. jd3 18:25 Daniel Treviño is Primary Nurse. ak2 18:26 Sameer Mcbride NP is PHCP. pm1 18:26 Killian Melgoza MD is Attending Physician. pm1 18:43 COVID-19 : Document "Date of Symptom Onset" if Symptomatic. Sent. ca1 19:51 Lower Extremity Artery Uni Ltd US In Process Unspecified. EDMS 20:50 initiated a transfer with Guillermina Parkinson from [facility] [place]. mw2 21:03 [facility] denied due to capacity. mw2 21:06 initiated a transfer with Louisa Enrrique from [facility] Transfer [facility]. mw2 21:12 Tib Fib Left XRAY In Process Unspecified. EDMS 21:13 Foot Left 3 View XRAY In Process Unspecified. EDMS 21:13 [facility] denied due to capacity. mw2 21:23 initiated a transfer Latha with from [facility]. mw2 21:41 [facility] denied due to capacity. mw2 21:44 initiated a transfer with Yanna from [facility] [place]. mw2 21:48 [facility] denied due to capacity. mw2 21:49 initiated a transfer with Olivia from [facility]. mw2 21:57 doc to doc with the Vascular doctor from [facility]. mw2 22:08 doc to doc with the Hospitalist from [facility]. mw2 22:17 administrative approval given by Debbie Daniel/ patient has been accepted to [address] 2006/ Dr. Hameed accepted the patient in transfer/ report to be called to [phone]. Administered Medications: 20:49 Drug: Zosyn (piperacillin-tazobactam) 3.375 grams Route: IVPB; Infused Over: 60 mins; ak2 Site: left antecubital; 22:26 Drug: vancoMYCIN 1 grams Route: IVPB; Infused Over: 2 hrs; Site: left antecubital; ak2 22:27 Drug: NS 0.9% 1000 ml Route: IV; Rate: 100 ml/hr; Site: left antecubital; ak2 22:27 Drug: NS 0.9% 500 ml Route: IV; Rate: bolus; Site: left antecubital; ak2 Outcome: 20:38 ER care complete, transfer ordered by MD. pm1 23:09 Transferred by ground EMS to [facility]. ak2 23:09 Condition: good 23:09 Patient left the ED. ak2 Signatures: Dispatcher [employer] EDMS Kiesha Alegre Patrick, ASHLYN CUT OFF SAW OPERATOR PIPE BLANKS pm1 Yuval Morris RN RN jd3 [place], MyKena mw2 Cecilia Hugo RN RN ca1 [place], Anthony ak2 Corrections: (The following items were deleted from the chart) 16:30 16:28 BP 149 / 55; Pulse 57bpm; Resp 17bpm; Spontaneous; Temp 98.6F Temporal; 72.57 kg jd3 Reported; Height 6 ft. 0 in. Reported; BMI: 21.7; Pain 0/10; jd3
--- NOTE | 2020-09-21 20:39 | EDPHYS ---
Physician Documentation [facility] Name: Kevin Aleman Age: 79 yrs Sex: Male : 1940 Arrival Date: 09/21/2020 Time: 15:58 Bed 25 Private MD: Jeff Gary ED Physician Killian Melgoza HPI: 09/21 18:38 This 79 yrs old Male presents to ER via Wheelchair with complaints of Wound pm1 Check - not healing. 18:38 The affected area is on the left Achilles and medial aspect of left foot. Previous pm1 treatment: September 08 or . Patient had three stents placed in left lower leg due to arterial occulsions. Progress: The patient reports no improvement in wound healing. The patient has been recently seen by a physician: Dr. Gary at wound care. Patient presented to wound care today with Dr. Gary. He was sent ot the ER for transfer to [facility] for management of his arterial vascular disease because patient's foot is cold and blue. Dr. Dalal placed stents to left leg in August about 2 weeks ago. Patient and report that his foot has been cold and blue for about 1 week. Historical: - Allergies: 16:28 No Known Allergies; jd3 - Home Meds: 16:28 Aspirin Oral [Active]; basaglar [Active]; Novolin R Sub-Q [Active]; benazepril oral jd3 oral [Active]; Farxiga oral oral [Active]; Hydrochlorothiazide Oral [Active]; Niacin Oral [Active]; gabapentin oral oral [Active]; - PMHx: 16:28 Diabetes - IDDM; jd3 - PSHx: 16:28 tumor removed from bladder; jd3 - Immunization history:: Adult Immunizations up to date. - Social history:: Smoking status: Patient denies any tobacco usage or history of. ROS: 18:38 Constitutional: Negative for fever, chills, and weight loss, Cardiovascular: Negative pm1 for chest pain, palpitations, and edema, Respiratory: Negative for shortness of breath, cough, wheezing, and pleuritic chest pain, Abdomen/GI: Negative for abdominal pain, nausea, vomiting, diarrhea, and constipation, Back: Negative for injury and pain. 18:38 Neuro: Negative for headache, weakness, numbness, tingling, and seizure. 18:38 MS/extremity: Negative for pain, paresthesias, tingling. 18:38 Skin: Positive for ulceration, of the medial aspect of left foot and left Achilles. 18:38 All other systems are negative. Exam: 18:38 Constitutional: This is a well developed, well nourished patient who is awake, alert, pm1 and in no acute distress. Head/Face: Normocephalic, atraumatic. 18:38 Eyes: Exam is negative for acute changes, Extraocular movements: intact throughout, pm1 Conjunctiva: no acute changes, Sclera: icterus, is not appreciated. 18:38 ENT: Mouth: Lips: normal, Oral mucosa: normal, pink and intact, moist. 18:38 Cardiovascular: Exam negative for Rate: normal, Rhythm: regular, Pulses: pulse deficits are appreciated, not palpable, left dorsalis pedis. 18:38 Respiratory: Exam negative for acute changes, respiratory distress, shortness of breath. 18:38 Abdomen/GI: Exam negative for acute changes, Inspection: abdomen appears normal, Palpation: abdomen is soft and non-tender, in all quadrants. 18:38 Musculoskeletal/extremity: ROM: limited active range of motion, in the left knee, limited passive range of motion, in the left knee. 18:38 Skin: Appearance: Color: cyanotic, to left foot, lesion(s), ulceration without drainage 1.5 cm diameter to MTP medial aspect of left foot. 8cm x 3cm ulceration without drainage with exposure of Achilles tendon present to distal aspect of left calf. 18:38 Neuro: Exam negative for acute changes, Orientation: is normal, Mentation: is normal, Motor: is normal, moves all fours. Vital Signs: 16:28 BP 149 / 55; Pulse 57; Resp 17 S; Temp 98.6(TE); Pulse Ox 95% on R/A; Weight 72.57 kg jd3 (R); Height 6 ft. 0 in. (182.88 cm) (R); Pain 0/10; 20:52 BP 167 / 58; Pulse 60; Resp 18; Pulse Ox 98% on R/A; ak2 22:35 BP 157 / 54; Pulse 58; Resp 18; Pulse Ox 98% on R/A; ak2 16:28 Body Mass Index 21.70 (72.57 kg, 182.88 cm) jd3 MDM: 18:26 Patient medically screened. pm1 20:27 ED course: Dr Dacosta physically examined patient and recommended Zosyn IV coverage. pm1 20:32 Data reviewed: vital signs. Data interpreted: Pulse oximetry: on room air is 95 %. pm1 Interpretation: normal. Counseling: I had a detailed discussion with the patient and/or guardian regarding: the historical points, exam findings, and any diagnostic results supporting the discharge/admit diagnosis, lab results, radiology results, the need to transfer to another facility, [facility] does not immediately have the required specialist, require vascular surgeon. 22:25 Physician consultation: Acceptance by Dr. Saldana. Discussed case with resident. pm1 09/21 18:35 Order name: COVID-19 : Document "Date of Symptom Onset" if Symptomatic. pm1 09/21 18:37 Order name: CBC with Diff pm09/21 18:37 Order name: BMP; Complete Time: 19:22 pm1 09/21 18:37 Order name: LFT's; Complete Time: 19:22 pm1 09/21 18:37 Order name: PT-INR; Complete Time: 19:16 pm1 09/21 18:34 Order name: Lower Extremity Artery Uni Ltd US; Complete Time: 20:25 pm1 09/21 18:38 Order name: CBC with Automated Diff; Complete Time: 19:16 EDMS 09/21 20:18 Order name: SARS-COV-2 RT PCR; Complete Time: 20:25 EDMS 09/21 20:25 Order name: Tib Fib Left XRAY; Complete Time: 21:27 pm1 09/21 20:25 Order name: Foot Left 3 View XRAY; Complete Time: 21:26 pm1 09/21 20:32 Order name: Blood Culture Adult (2) pm09/21 18:38 Order name: IV Saline Lock pm09/21 20:32 Order name: Wound dressing pm09/21 22:17 Order name: NPO: At midnight pm1 Administered Medications: 20:49 Drug: Zosyn (piperacillin-tazobactam) 3.375 grams Route: IVPB; Infused Over: 60 mins; ak2 Site: left antecubital; 22:26 Drug: vancoMYCIN 1 grams Route: IVPB; Infused Over: 2 hrs; Site: left antecubital; ak2 22:27 Drug: NS 0.9% 1000 ml Route: IV; Rate: 100 ml/hr; Site: left antecubital; ak2 22:27 Drug: NS 0.9% 500 ml Route: IV; Rate: bolus; Site: left antecubital; ak2 Disposition: 09/22 07:07 Co-signature as Attending Physician, Killian Melgoza MD. rn Disposition: 09/21/20 20:38 Transfer ordered to [facility]. Diagnosis are Left leg arterial occulsion, Left lower leg vascular ulcerations, Osteomyelitis left first MTP joint. - Reason for transfer: Specialty. - Accepting physician is MD. - Condition is Stable. - Problem is new. - Symptoms have improved. Signatures: Dispatcher [employer] EDMS Killian Melgoza MD MD rn Marinas, Patrick, PACKING MACHINE PILOT CAN ROUTER PACKING MACHINE PILOT CAN ROUTER pm1 Yuval Morris RN RN Daniel Uribe ak2 Corrections: (The following items were deleted from the chart) 09/21 19:00 18:35 CORONAVIRUS ordered. [facility] 20:43 20:38 09/21/2020 20:38 Transfer ordered to [facility]. pm1 Diagnosis is Left lower leg arterial occulsion; Left lower leg vascular ulcerations. Reason for transfer: Specialty. Accepting physician is MD. Condition is Stable. Problem is new. Symptoms have improved. pm1 21:31 20:43 09/21/2020 20:38 Transfer ordered to [facility]. pm1 Diagnosis is Left leg arterial occulsion; Left lower leg vascular ulcerations. Reason for transfer: Specialty. Accepting physician is MD. Condition is Stable. Problem is new. Symptoms have improved. pm1 23:09 21:31 09/21/2020 20:38 Transfer ordered to [facility]. ak2 Diagnosis is Left leg arterial occulsion; Left lower leg vascular ulcerations; Osteomyelitis left first MTP joint. Reason for transfer: Specialty. Accepting physician is MD. Condition is Stable. Problem is new. Symptoms have improved. pm1
[2020-09-21] MEDS ORDERED: PIPER/TAZO/NS 3.375gm 3.375 GM/100 ML BAG ONE (21:08)
--- NOTE | 2020-09-21 21:24 | RAD REPORT ---
EXAM DESCRIPTION: RAD - Foot Left 3 View - 09/21/2020 9:13 pm CLINICAL HISTORY: cellulitis Pain and swelling COMPARISON: No comparisons FINDINGS: Mild diffuse osteopenia. Soft tissue swelling is seen with erosive changes involving the f irst metatarsal-phalangeal joint. Adjacent soft tissue ulceration is present at the level of the firs t metatarsal head. The findings are suspicious for osteomyelitis/ first MTP joint septic arthritis.
--- NOTE | 2020-09-21 21:26 | RAD REPORT ---
EXAM DESCRIPTION: RAD - Tib Fib Left - 09/21/2020 9:13 pm CLINICAL HISTORY: cellulitis Pain and swelling COMPARISON: No comparisons FINDINGS: Atherosclerosis is noted. Soft tissue ulceration is seen along the posterior aspect of the distal leg. No fracture or dislocation. No finding to suggest osteomyelitis of the leg.
[2020-09-21] MEDS ORDERED: VANCOMYCIN 1 GM/VIAL ONE (22:45)
[2020-09-21] MEDS ORDERED: NA CHLORIDE 0.9% 250 ML ONE (22:45)
== END 2020-09-21 23:09 | disposition short-term general hospital (02) ==
LOC: ER 15:56
DX: I70.249 Atherosclerosis of native arteries of left leg with ulceration of unspecified site (principal); M86.8X7 Other osteomyelitis, ankle and foot; E11.51 Type 2 diabetes mellitus with diabetic peripheral angiopathy without gangrene; Z79.4 Long term (current) use of insulin; Z20.822 Contact with and (suspected) exposure to COVID-19
CPT/HCPCS: 87040 ×2; 85025; 80048; 36415; 85610; 80076; 73630; 73590; 93926; 96375; 96374; 99285; U0003; J3370; J2543; J7050